=== PATIENT | male | born 1980 | race Caucasian/White ===

== ENCOUNTER 2021-06-08 12:13 | Outpatient (CLI) | payer OTHER, SELFPAY ==
--- NOTE | 2021-06-08 12:37 | XRR_ITS ---
PROCEDURE INFORMATION: Exam: XR Lumbosacral Spine Exam date and time: 06/08/2021 12:37 PM Age: 40 years old Clinical indication: Pain; Lumbago; Additional info: Lumbago w/sciatica TECHNIQUE: Imaging protocol: XR of the lumbosacral spine. Views: 6 or more views. Including flexion and extension views. COMPARISON: No relevant prior studies available. FINDINGS: Bones/joints: Normal. No acute fracture. Normal alignment on flexion/extension radiographs. Soft tissues: Unremarkable. XR/XR lumbar spine 6V w f/e [id number] IMPRESSION: Unremarkable flexion/extension radiographs of the lumbar spine.
== END 2021-06-08 12:14 | disposition home or self-care (01) ==
PROVIDERS: PCP Nurse Practitioner Family; Visit Provider Nurse Practitioner Family
DX: M54.40 Lumbago with sciatica, unspecified side (principal)
CPT/HCPCS: 72114

== ENCOUNTER 2021-09-03 08:28 | Outpatient (CLI) | payer OTHER, SELFPAY ==
--- NOTE | 2021-09-03 08:32 | XR_ITS ---
WS: [id number] LUMBAR SPINE TECHNIQUE: 7 views of the lumbar spine CLINICAL INFORMATION: LUMBAGO WITH SCIATICA UNSPECIFIED SIDE COMPARISON: None. FINDINGS: Five [id number] lumbar vertebral bodies. Trace retrolisthesis L4 on L5 measuring 2 mm. This retu rns to neutral on flexion and is unchanged in extension. Mild facet arthropathy L5-S1. Disc space hei ghts and vertebral body heights well-preserved. IMPRESSION: 1. Mild flexion instability L4-5 described above. 2. Vertebral body heights and disc space heights well-preserved. 3. Mild facet arthropathy L5-S1.
--- NOTE | 2021-09-03 08:32 | XR_ITS ---
WS: [id number] KNEE RIGHT TECHNIQUE: 2 views of the right knee CLINICAL INFORMATION: PAIN IN UNSPECIFIED JOINT COMPARISON: None. FINDINGS: Right knee is normal in appearance. No evidence of acute fracture dislocation. No significant effusio n. Patella is normal. XR/XR knee RT 1-2V [id number] IMPRESSION: Normal right knee. Kellgren-Dimas Classification: grade 0 (none): definite absence of x-ray aj nges of osteoarthritis
--- NOTE | 2021-09-03 08:32 | XR_ITS ---
WS: [id number] SHOULDER RIGHT TECHNIQUE: 3 views of the right shoulder CLINICAL INFORMATION: PAIN IN UNSPECIFIED JOINT COMPARISON: None. FINDINGS: Mild degenerative arthritis AC joint. Distal clavicle is normal. Mild narrowing of the subacromial sp claudette. No acute fracture dislocation. XR/XR shoulder RT min 2V* [id number] IMPRESSION: 1. Mild degenerative arthritis AC joint. 2. Mild narrowing of the subacromial space. 3. No acute fracture dislocation.
== END 2021-09-03 08:29 | disposition home or self-care (01) ==
PROVIDERS: PCP Nurse Practitioner Family; Visit Provider Nurse Practitioner Family
DX: M25.50 Pain in unspecified joint (principal); M54.40 Lumbago with sciatica, unspecified side; M19.011 Primary osteoarthritis, right shoulder; M53.2X6 Spinal instabilities, lumbar region; M47.817 Spondylosis without myelopathy or radiculopathy, lumbosacral region
CPT/HCPCS: 72114; 73030; 73560

== ENCOUNTER 2022-05-05 12:15 | Outpatient (CLI) | payer OTHER, SELFPAY ==
--- NOTE | 2022-05-05 12:28 | MR_ITS ---
WS: [id number] MRI RIGHT KNEE NONCONTRAST TECHNIQUE: Axial PD, coronal PD fat sat, coronal PD, sagittal PD, and sagittal PD fat-sat images obta ined. CLINICAL INFORMATION: PAIN IN R KNEE COMPARISON: None. FINDINGS: Distal quadriceps and patella tendons are intact. 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 Recommend correlation prior ACL i njury. Associated subchondral cystic changes involving the adjacent tibia and femoral condyles along the margins of the ACL. PCL is normal in appearance. Mild chronic thinning of the medial and lateral meniscus. No acute appearing meniscal tears. Prepatel lar and infrapatellar soft tissue edema. Small joint effusion. Normal medial and lateral collateral l igaments. Moderate narrowing of the medial joint compartment with chronic thinning of the medial meni scus. Presumed prior partial medial meniscectomy. No significant chondromalacia patella. Normal medial and lateral patellar retinaculum. Normal poplite al fossa. Tiny popliteal cyst measuring 13 x 3 x 17 mm. MR/MR knee RT wo con* [id number] IMPRESSION: 1. Diffuse abnormal thickening of the ACL likely due to chronic mucoid degener ation with increased T1 signal abnormality. 2. Subchondral cystic changes along the tibial and femoral tunnels likely due to above described mucoid degeneration along the margins of the ACL. 3. Normal PCL. 4. Evidence of prior partial medial meniscectomy with loss of the medial joint compartment. 5. No acute appearing meniscal tears. 6. Normal LCL and MCL. 7. Tiny popliteal cyst. Outbridge grading: grade III: partial-thickness cartilage loss with focal ulcer ation
== END 2022-05-05 12:16 | disposition home or self-care (01) ==
LOC: RAD 12:15
PROVIDERS: PCP Nurse Practitioner Family; Visit Provider Nurse Practitioner Family
DX: M25.561 Pain in right knee (principal)
CPT/HCPCS: 73721

== ENCOUNTER → 2022-05-27 10:41 | Outpatient (BNVA) | payer OTHER, SELFPAY | PROVIDERS: PCP Nurse Practitioner Family; Visit Provider Physician Assistant | DX: M25.561 Pain in right knee (principal); M25.562 Pain in left knee | CPT/HCPCS: 73560; 73565 ==